=== PATIENT | female | born 1970 | race Caucasian/White ===

== ENCOUNTER 2016-11-02 05:16 | Inpatient (IN) | payer BC ==
--- NOTE | 2016-10-29 14:05 | HP ---
DATE OF ADMISSION: 11/02/[address] Pollard: Thank you for asking me to see this pleasant 46-year-old woman with at least 6 months of unrelenting right leg to ankle discomfort, sciatic symptoms, unresponsive to previous attempts at epidurals. S he is scheduled for a microdiskectomy at the L5-S1 level. PAST MEDICAL HISTORY: Relatively unremarkable. CURRENT MEDICATIONS: She takes no medications. ALLERGIES: SHE HAS NO ALLERGIES. PAST SURGICAL HISTORY: Only previous surgery was tonsillectomy. SOCIAL HISTORY: The patient is single, has no children. 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 REVIEW OF SYSTEMS: GENITOURINARY: She is perimenopausal, with periods every few months and hot flashes. Last period w as August of 2016. The patient is not sexually active. HEENT: She does require glasses for reading. EXTREMITIES: Notes that there is some weakness in her right leg. Otherwise, review of systems is unremarkable. PHYSICAL EXAMINATION: VITAL SIGNS: Blood pressure is 112/80 in the right arm, pulse is 65 and regular. She is afebrile. She is 5 feet 6 inches tall and weighs 181 pounds. GENERAL: She is alert and oriented, somewhat overweight lady, in no acute distress. HEAD, EARS, NOSE AND THROAT: Unremarkable. Pharynx is normal. LUNGS: Clear to percussion and auscultation. HEART: Tones are regular. No murmurs. ABDOMEN: Soft, without palpable masses or tenderness. EXTREMITIES: No clubbing, cyanosis or edema. Good peripheral pulses. She has no evidence of perip heral arthritis. Her straight leg raising test is positive on the right. She has reduction in the s trength of her EHL on the right side as well. Vibration is intact. INITIAL IMPRESSION: Preoperative status for microdiskectomy L5-S1 for symptomatic spinal stenosis. DISCUSSION: At this time there is no contraindication to proceeding with surgery. Laboratory tests are essentially normal. Slight elevation of her SGPT, which may be related to her weight. Chest x -ray and electrocardiogram are normal. Thank you for asking us to see her at this time. We will be glad to follow her along with you posto peratively as needed. Dictated By: ANDRA BECKER MD, SR/KERRY Conf#: [id number] DID#: [id number]
[~2016-11-02] VITALS: Ht 167.6 cm; Wt 81.8 kg
[2016-11-02] VITALS (23 sets, daily range): BP systolic 111–142; BP diastolic 67–91; PULSE 68–88; RESP 16–25; Ht 167.6 cm; Wt 81.8 kg
[2016-11-02] MEDS ORDERED: CEFAZOLIN 2 GM/50 ML (PMX) 50 ML IVPB ONE (06:00)
[2016-11-02] MEDS ORDERED: LACTATED RINGER'S 1,000 ML IV* ONE (06:00)
[2016-11-02] MEDS ORDERED: SURGIFOAM POWDER 1 GM KIT ONE (06:44)
[2016-11-02] MEDS ORDERED: THROMBIN 5000 UNIT VIAL ONE (06:45)
[2016-11-02] MEDS ORDERED: BUPIVACAINE 0.25%/EPI (SDV) 30 ML INJ ONE (06:45)
[2016-11-02] MEDS ORDERED: BUPIVACAINE 0.25% (MPF) 30 ML INJ ONE (06:45)
[2016-11-02] MEDS ORDERED: POLYMYXIN/BACITRACIN 1L IRRIG ONE (06:48)
[2016-11-02] MEDS ORDERED: CEFAZOLIN 1 GM INJ ONE (07:00)
[2016-11-02] MEDS ORDERED: LIDOCAINE 2% (SDV) 5 ML INJ ONE (07:00)
[2016-11-02] MEDS ORDERED: CA CHLORIDE 10% 10 ML SYRINGE ONE (07:04)
--- NOTE | 2016-11-02 07:09 | HPN ---
Date/Time of Note Date/Time of Note DATE: 11/02/16 TIME: 07:08 Interval H&P Admission Note Pt. seen H&P reviewed: No system changes STACY CAPUTO MD Nov 02, 2016 07:09
[2016-11-02] MEDS ORDERED: FENTAnyl 50 MCG/ML VIAL ONE ×3 (07:13→08:47)
[2016-11-02] MEDS ORDERED: MIDAZOLAM 1 MG/ML 2 ML INJ ONE (07:13)
[2016-11-02] MEDS ORDERED: PROPOFOL 20 ML ONE (07:15)
[2016-11-02] MEDS ORDERED: BISACODYL 10 MG SUPP PR PRN (07:30)
[2016-11-02] MEDS ORDERED: HYDROmorphONE 0.2 MG/ML PCA IV SCH (07:30)
[2016-11-02] MEDS ORDERED: HYDROmorphONE 1 MG/ML SYG IV PRN (07:30)
[2016-11-02] MEDS ORDERED: DIPHENHYDRAMINE 50 MG INJ IV PRN ×2 (07:30→09:00)
[2016-11-02] MEDS: CEFAZOLIN 1 GM/50 ML (PMX) 50 ML IVPB SCH ×3 (07:30→23:29)
[2016-11-02] MEDS ORDERED: NALOXONE (0.4 MG/ML) INJ IV PRN (07:30)
[2016-11-02] MEDS ORDERED: DIPHENHYDRAMINE 25 MG CAP PO PRN (07:30)
[2016-11-02] MEDS ORDERED: CARISOPRODOL 350 MG TAB PO PRN (07:30)
[2016-11-02] MEDS ORDERED: ACETAMINOPHEN 325 MG TAB PO PRN (07:30)
[2016-11-02] MEDS ORDERED: AL HYDROX/MG HYDROX/SIMETH 30 ML CUP PO PRN (07:30)
[2016-11-02] MEDS ORDERED: HYDROCODONE/APAP (10/325) TAB PO PRN ×2 (07:30)
[2016-11-02] MEDS ORDERED: CEPASTAT LOZENGE MT PRN (07:30)
[2016-11-02] MEDS ORDERED: ONDANSETRON 4 MG INJ IV PRN ×2 (07:30→09:00)
[2016-11-02] MEDS ORDERED: morphine 10 MG INJ ONE (07:32)
[2016-11-02] MEDS ORDERED: LABETALOL HCL 20MG INJ ONE (07:42)
[2016-11-02] MEDS ORDERED: BUPIVACAINE 0.25%/EPI (SDV) 30 ML INJ INJ ONE (07:48)
[2016-11-02] MEDS ORDERED: THROMBIN 5000 UNIT VIAL TOP ONE (07:48)
[2016-11-02] MEDS ORDERED: POLYMYXIN/BACITRACIN 1L IRRIG IRR ONE (07:48)
[2016-11-02] MEDS ORDERED: DEXAMETHASONE 4 MG/ML 1 ML INJ ONE (07:59)
[2016-11-02] MEDS ORDERED: ONDANSETRON 4 MG INJ ONE (08:17)
[2016-11-02] MEDS ORDERED: GLYCOPYRROLATE 1 MG INJ ONE (08:27)
[2016-11-02] MEDS ORDERED: NEOSTIGMINE 3 MG/3 ML SYRINGE ONE (08:27)
[2016-11-02] MEDS ORDERED: OXYCODONE/ACETAMINOPHEN (5/325) TAB PO PRN (09:00)
[2016-11-02] MEDS: DOCUSATE SODIUM 100 MG CAP PO SCH ×2 (09:00→20:56)
[2016-11-02] MEDS ORDERED: LABETALOL HCL 20MG INJ IV PRN (09:00)
[2016-11-02] MEDS ORDERED: HYDROmorphONE (0.2 MG/ML) 10ML SYG IV PRN ×3 (09:00)
[2016-11-02] MEDS ORDERED: EPHEDrine SULFATE 50 MG/5 ML SYG IV PRN (09:00)
[2016-11-02] MEDS ORDERED: MEPERIDINE 25 MG INJ IV PRN (09:00)
[2016-11-02] MEDS ORDERED: hydrALAzine 20 MG INJ IV PRN (09:00)
[2016-11-02] MEDS ORDERED: FENTAnyl 50 MCG/ML VIAL IV PRN ×2 (09:00)
[2016-11-02] MEDS: FENTAnyl 50 MCG/ML VIAL IV PRN ×3 (09:06→09:23)
--- NOTE | 2016-11-02 10:23 | OPR ---
DATE OF OPERATION: 11/02/2016 PREOPERATIVE DIAGNOSIS: Right L5 to S1 disk herniation with radiculopathy. POSTOPERATIVE DIAGNOSIS: Right L5 to S1 disk herniation with radiculopathy. PROCEDURE PERFORMED: 1. Right L5 to S1 hemilaminotomy, partial medial facetectomy, and foraminotomy. 2. Right L5 to S1 lumbar microdiskectomy. 2. Lateral localizing film x2. 3. Use of operative microscope. 4. Intraoperative neuromonitoring (1 hour). 5. Epidural injection via catheter. PRIMARY SURGEON: Renny Pollard MD AIRLINE RESERVATION AGENT: Margo Viera PA-C NEED FOR VARNISH THINNER: During this spinal surgical procedure, my sales assistants and salespersons was used to retrac t and protect the spinal nerves and dural sac. My sales assistants and salespersons also employed the suction catheters to evacuate blood from the surgical field to improve visualization of the neural structures. The sebastian tant was medically necessary to facilitate the completion of the surgery in a safe and expeditious m michele. [facility] [place] regulations, as well as hospital bylaws, preclude the use of non-license d health care personnel, such as operating room technicians, to perform these functions. FINDINGS: Neuromonitoring at the start of the case revealed right L5 amplitude down 40%, right S1 a mplitude down 30%. At the end of the case, nerve signals returned to normal. The patient had a jeni y swollen right S1 nerve root. She had a calcified disk herniation. ESTIMATED BLOOD LOSS: Less than 30 mL. DRAINS: None. SPECIMENS: L5 to S1 disk. COMPLICATIONS OF PROCEDURES: None. ANESTHESIOLOGIST: Dr. Rice TYPE OF ANESTHESIA: General. INDICATIONS FOR PROCEDURE: This is a 46-year-old female with right lumbosacral radiculopathy in the setting of a disk herniation at L5 to S1. She has failed nonoperative measures, therefore, I recom mended pursuing the above-mentioned surgery. Preoperatively, we discussed risks, benefits, and alte rnatives. She understood and wished to proceed. DESCRIPTION OF PROCEDURE IN DETAIL: The patient was identified in the preoperative holding area, [facility], taken to the operating room, where she was successfully placed under general. Neuromonitoring leads were placed. Sequential compressive devices were applied. Esquivel catheter wa s not introduced. Neuromonitoring was utilized during the procedure for 1 hour to include SSEP, MEP , and EMG. This was performed by [employer]. Start time was 7:30 a.m., closure time was 8:30 a.m. The patient was placed on the operative table in prone position over a Charly frame. All bon y prominences were well padded. The back was then prepped and draped in the usual sterile fashion. Spinal needles were placed and lateral localizing film obtained to confirm the correct levels. I t hen injected the paraspinal musculature with 0.25% Marcaine and epinephrine. Incision was then made over the L5 to S1 level. Incision was taken down to the dorsal fascia, which was incised with Bovie cautery. I then subperiosteally dissected the right L5 lamina. A Jovana re tractor was placed. Kerrison was placed in what was felt to be the L5 lamina and repeat lateral damian m obtained to confirm the correct levels. Once this was confirmed, microscope was brought in and a right-sided hemilaminotomy and partial medial facetectomy and foraminotomy was performed at the L5 t o S1 level. The ligamentum flavum was then sharply dissected. The right S1 nerve root was quite la rge and my sales assistants and salespersons retracted this medially. I made an annulotomy. The disk was quite collapsed a nd therefore, I took a Kerrison to remove the posterior calcified anulus. Once this was done, I rem mariel the disk herniation. Once this was done, all nerve signals returned to normal. I achieved hem ostasis with Surgifoam and bipolar cautery. The wound was then copiously irrigated. Valsalva maneu jeni was performed and there was no leak of CSF. The wound was dry and therefore, I elected not to p lace a drain. An epidural catheter was placed through which I injected 100 mcg of fentanyl and the catheter was pulled. The anesthesiologist jacky peripheral blood, which was spun down using the [employer] device and I took the platelet-poor plasma and mixed this with thrombin and injected this over the dura for hemostati c purposes. Once this was done, I removed the retractors and closed the deep fascia with #1 Vicryl stitch. I then closed the subcutaneous tissue with a 2-0 Vicryl stitch. Microscope was taken off t he field. I then closed the skin with a 4-0 Monocryl closure. Dermabond was then applied. The pat ient was then awakened from anesthesia and taken to the recovery room in stable condition. Lap, spo nge, and instrument counts were correct x2. There were no apparent complications during the procedu re. The patient will be admitted to the orthopedic ren for routine postoperative care to include pain c ontrol, neurovascular checks, antibiotics, and physical therapy. Dictated By: RENNY LEW/KERRY Conf#: [id number] DID#: [id number]
[2016-11-02] MEDS: PANTOPRAZOLE 40 MG INJ IV SCH (12:00)
--- NOTE | 2016-11-02 12:13 | RADRPT ---
PROCEDURE: Intraoperative XR. CLINICAL INDICATION: Intraoperative radiograph during L5-S1 lumbar decompression. TECHNIQUE: Spot intraoperative lateral lumbar x-ray image was provided. The images were reviewed on a high-resolution PACS workstation. COMPARISON: None available FINDINGS: Spot intraoperative lateral lumbar view were provided during L5-S1 lumbar decompression. The images demonstrate metallic probe at the level of L5 and S1. IMPRESSION: 1. Spot intraoperative lateral lumbar view during L5-S1 lumbar decompression were provided. 2. Please see operative report of the same day for further information. RPTAT: DD .Skinny Mascorro MD, Date Time Electronically viewed and signed by .Skinny Mascorro MD, on 11/02/2016 12:12 .S/
--- NOTE | 2016-11-02 12:14 | RADRPT ---
PROCEDURE: Intraoperative XR. CLINICAL INDICATION: Intraoperative radiograph during L5-S1 lumbar decompression. TECHNIQUE: Spot intraoperative lateral lumbar x-ray image was provided. The images were reviewed on a high-resolution PACS workstation. COMPARISON: None available FINDINGS: Spot intraoperative lateral lumbar view were provided during L5-S1 lumbar decompression. The images demonstrate metallic instrumentation at the level of L5-S1. IMPRESSION: 1. Spot intraoperative lateral lumbar view during L5-S1 lumbar decompression were provided. 2. Please see operative report of the same day for further information. RPTAT: DD .Skinny Mascorro MD, Date Time Electronically viewed and signed by .Skinny Mascorro MD, on 11/02/2016 12:13 .S/
--- NOTE | 2016-11-02 12:47 | OPPN ---
Date/Time of Note Date/Time of Note DATE: 11/02/16 TIME: 12:46 Post-Anesthesia Notes Post-Anesthesia Note Last documented vital signs Vital Signs Date Time Temp Pulse Resp B/P Pulse Ox O2 Delivery O2 Flow Rate FiO2 11/02/16 09:36 78 18 132/73 98 Nasal Cannula 2.0 11/02/16 08:48 98.0 Activity: WNL Respiratory function: WNL Cardiovascular function: WNL Mental status: Baseline Pain reasonably controlled: Yes Hydration appropriate: Yes Nausea/Vomiting absent: Yes MATTHEW SEAY Nov 02, 2016 12:47
--- NOTE | 2016-11-02 14:04 | PN ---
Date/Time of Note Date/Time of Note DATE: 11/02/16 TIME: 14:02 Assessment/Plan VTE Prophylaxis VTE Prophylaxis Intervention: heparin Lines/Catheters IV Catheter Type (from Nrsg): Peripheral IV Assessment/Plan Problems: (1) Sciatica of right side due to displacement of lumbar intervertebral disc Status: Chronic Comment: It appears postoperatively that she has had an improvement in symptoms. Physical therapy will be critical to the long-term success of this (2) S/P lumbar discectomy Status: Acute Comment: She is postop and appears to have done well without any evidence of untoward complication and several factors suggesting a good outcome with surgery. Subjective 24 Hr Interval Summary Free Text/Dictation Charming female lying in bed postoperatively. She reports no complaints. Constitutional: no complaints (No fevers chills or sweats) Eyes: no complaints Respiratory: no complaints Cardiovascular: no complaints Gastrointestinal: no complaints Genitourinary: no complaints Musculoskeletal: back pain Neurologic: other (Still some right leg symptoms but less than preop) Exam/Review of Systems Vital Signs Vitals Vital Signs Date Time Temp Pulse Resp B/P Pulse Ox O2 Delivery O2 Flow Rate FiO2 11/02/16 09:36 78 18 132/73 98 Nasal Cannula 2.0 11/02/16 08:48 98.0 Exam Constitutional: alert, oriented Neck: non-tender, supple Respiratory: clear to auscultation, normal air movement Cardiovascular: nl pulses, regular rate and rhythm Gastrointestinal: nl liver, spleen, non-tender, soft Extremities: normal pulses Medications Medications Current Medications Potassium Chloride/Dextrose/ Sod Cl (D5-1/2ns + KCl 20 Meq) 1,000 ml @ 100 mls/ hr Q10H IV ; Start 11/02/16 at 07:09 Acetaminophen/ Hydrocodone Bitart ([place] (10/325)) 1 tab Q4H PRN PO PAIN LEVEL 1-5; Start 11/02/16 at 07:30 Acetaminophen/ Hydrocodone Bitart ([place] (10/325)) 2 tab Q4H PRN PO PAIN LEVEL 6-10; Start 11/02/16 at 07:30 Hydromorphone HCl 0.2 mg 0.2 mg Q1H PRN IV BREAKTHROUGH PAIN; Start 11/02/16 at 07:30 Cefazolin Sodium (Ancef 1 Gm/50 ml (Pmx)) 50 ml @ 100 mls/hr Q8H IVPB ; Start 11/02/16 at 07:30; Stop 11/02/16 at 23:59 Ondansetron HCl (Zofran Inj) 4 mg Q6H PRN IV NAUSEA AND/OR VOMITING; Start at 07:30 Bisacodyl (Dulcolax Supp) 10 mg DAILY PRN [place] CONSTIPATION; Start 11/02/16 at 07 :30 Docusate Sodium (Colace) 100 mg BID PO ; Start 11/02/16 at 09:00 Pantoprazole (Protonix Iv) 40 mg DAILY@06 IV ; Start 11/02/16 at 12:00 Al Hydrox/Mg Hydrox/Simethicone (Mag-Al Plus) 15 ml Q6H PRN PO CONSTIPATION/ DYSPEPSIA; Start 11/02/16 at 07:30 Acetaminophen (Tylenol Tab) 650 mg Q4H PRN PO BURNETT OR TEMP GREATER THAN 101.3F; Start 11/02/16 at 07:30 Carisoprodol (Soma) 350 mg TID PRN PO MUSCLE SPASMS; Start 11/02/16 at 07:30 Phenol (Cepastat Lozenge) 1 lozenge PRN PRN [place] SORE THROAT; Start 11/02/16 at 07:30 Diphenhydramine HCl (Benadryl) 25 mg Q6H PRN PO ITCHING; Start 11/02/16 at 07: 30 Diphenhydramine HCl (Benadryl) 25 mg Q6H PRN IV ITCHING; Start 11/02/16 at 07: 30 Naloxone HCl (Narcan) 0.2 mg Q2M PRN IV RR 8 BREATHS/MIN OR LESS; Start at 07:30 Hydromorphone HCl (Dilaudid WOOD SCRAP HANDLER) WOOD SCRAP HANDLER to be started in PACU Q4PCA IV Last administered on 11/02/16t 08:44; Admin Dose 6 MG; Start 11/02/16 at 07:30 Miscellaneous Information 1. Hold WOOD SCRAP HANDLER at 1,000... WOOD SCRAP HANDLER IV ; Start 11/02/16 at 07: 30 SOLA CARLSON MD Nov 02, 2016 14:04
[2016-11-02] MEDS: D5W-0.45 NACL + KCL 20 MEQ 1,000 ML IV SCH ×2 (14:12→17:09)
[2016-11-03] MEDS: D5W-0.45 NACL + KCL 20 MEQ 1,000 ML IV SCH (03:09)
[2016-11-03 04:55] LABS: ADD SCAN DIFF NO
[2016-11-03 05:10] LABS: BASOPHILS % 0.2 % (0.0-2.0); EOSINOPHILS % 0.1 % (0.0-7.0); HEMATOCRIT 39.6 % (37.0-47.0); HEMOGLOBIN 12.7 g/dl (12.0-16.0); LYMPHOCYTES # 1.6 10^3/ul (0.8-2.9); LYMPHOCYTES % 11.1 % (15.0-51.0); MEAN CORPUSCULAR HGB CONC 32.1 g/dl (32.0-37.0); MEAN CORPUSCULAR VOLUME 87.4 fl (82.0-101.0); MEAN PLATELET VOLUME 9.7 fl (7.4-10.4); MONOCYTES % 6.4 % (0.0-11.0); NEUTROPHIL # 12.1 10^3/ul (1.6-7.5); NEUTROPHILS % 81.7 % (39.0-77.0); PLATELET COUNT 241 10^3/UL (140-415); RED BLOOD COUNT 4.53 10^6/ul (4.20-5.40); WHITE BLOOD COUNT 14.8 10^3/ul (4.8-10.8)
[2016-11-03] MEDS: PANTOPRAZOLE 40 MG INJ IV SCH (05:31)
[2016-11-03 05:49] LABS: CALCIUM 9.5 mg/dl (8.4-10.2); CREATININE 0.66 mg/dl (0.44-1.00); MAGNESIUM 1.9 mg/dl (1.7-2.5); POTASSIUM 4.7 mmol/L (3.5-5.1)
[2016-11-03] MEDS ORDERED: CEFAZOLIN 1 GM/50 ML (PMX) 50 ML IVPB SCH (07:30)
[2016-11-03 07:50] VITALS: BP 107/64; RESP 19
[2016-11-03] MEDS: DOCUSATE SODIUM 100 MG CAP PO SCH (08:47)
--- NOTE | 2016-11-03 08:48 | PN ---
Date/Time of Note Date/Time of Note DATE: 11/03/16 TIME: 08:46 Assessment/Plan VTE Prophylaxis VTE Prophylaxis Intervention: SCD's Lines/Catheters IV Catheter Type (from Nrsg): Peripheral IV Subjective 24 Hr Interval Summary Free Text/Dictation doing well first post op day excellent strength now in rt foot, no complaint of leg pain, some back discomfort lungs clear, abd soft labs, vs ok probable dc home per ortho Exam/Review of Systems Vital Signs Vitals Vital Signs Date Time Temp Pulse Resp B/P Pulse Ox O2 Delivery O2 Flow Rate FiO2 11/03/16 07:50 98.5 73 19 107/64 100 11/02/16 14:00 Nasal Cannula 11/02/16 09:36 2.0 Intake and Output 11/02/16 11/02/16 11/03/16 15:00 23:00 07:00 Intake Total 700 ml 50 ml 1910 ml Output Total 50 ml Balance 650 ml 50 ml 1910 ml Results Result Diagram: 11/03/16 0439 11/03/16 0439 Results 24 hrs Laboratory Tests Test 11/03/16 04:39 11/03/16 05:17 White Blood Count 14.8 H Red Blood Count 4.53 Hemoglobin 12.7 Hematocrit 39.6 Mean Corpuscular Volume 87.4 Mean Corpuscular Hemoglobin 28.0 L Mean Corpuscular Hemoglobin Concent 32.1 Red Cell Distribution Width 13.0 Platelet Count 241 Mean Platelet Volume 9.7 Neutrophils % 81.7 H Lymphocytes % 11.1 L Monocytes % 6.4 Eosinophils % 0.1 Basophils % 0.2 Nucleated Red Blood Cells % 0.0 Neutrophils # 12.1 H Lymphocytes # 1.6 Monocytes # 1.0 H Eosinophils # 0.0 Basophils # 0.0 Nucleated Red Blood Cells # 0.0 Sodium Level 139 Potassium Level 4.7 Chloride Level 107 Carbon Dioxide Level 24 Anion Gap 13 Blood Urea Nitrogen 14 Creatinine 0.66 Glucose Level 149 Calcium Level 9.5 Magnesium Level 1.9 Lab Scanned Report REFERENCE LAB Medications Medications Current Medications Potassium Chloride/Dextrose/ Sod Cl (D5-1/2ns + KCl 20 Meq) 1,000 ml @ 100 mls/ hr Q10H IV Last administered on 11/02/16t 14:12; Admin Dose 100 MLS/HR; Start 11/02/16 at 07:09 Acetaminophen/ Hydrocodone Bitart ([place] (10/325)) 1 tab Q4H PRN PO PAIN LEVEL 1-5; Start 11/02/16 at 07:30 Acetaminophen/ Hydrocodone Bitart ([place] (325)) 2 tab Q4H PRN PO PAIN LEVEL 6-10; Start 11/02/16 at 07:30 Hydromorphone HCl (Dilaudid) 0.2 mg Q1H PRN IV BREAKTHROUGH PAIN; Start at 07:30 Ondansetron HCl (Zofran Inj) 4 mg Q6H PRN IV NAUSEA AND/OR VOMITING Last administered on 11/02/16 19:18; Admin Dose 4 MG; Start 11/02/16 at 07:30 Bisacodyl (Dulcolax Supp) 10 mg DAILY PRN [place] CONSTIPATION; Start 11/02/16 at 07 :30 Docusate Sodium (Colace) 100 mg BID PO Last administered on 11/02/16 20:56; Admin Dose 100 MG; Start 11/02/16 at 09:00 Pantoprazole (Protonix Iv) 40 mg DAILY@06 IV Last administered on 11/03/16 05: 31; Admin Dose 40 MG; Start 11/02/16 at 12:00 Al Hydrox/Mg Hydrox/Simethicone (Mag-Al Plus) 15 ml Q6H PRN PO CONSTIPATION/ DYSPEPSIA; Start 11/02/16 at 07:30 Acetaminophen (Tylenol Tab) 650 mg Q4H PRN PO BURNETT OR TEMP GREATER THAN 101.3F Last administered on 11/02/16 19:18; Admin Dose 650 MG; Start 11/02/16 at 07:30 Carisoprodol (Soma) 350 mg TID PRN PO MUSCLE SPASMS; Start 11/02/16 at 07:30 Phenol (Cepastat Lozenge) 1 lozenge PRN PRN [place] SORE THROAT; Start 11/02/16 at 07:30 Diphenhydramine HCl (Benadryl) 25 mg Q6H PRN PO ITCHING; Start 11/02/16 at 07: 30 Diphenhydramine HCl (Benadryl) 25 mg Q6H PRN IV ITCHING; Start 11/02/16 at 07: 30 Naloxone HCl (Narcan) 0.2 mg Q2M PRN IV RR 8 BREATHS/MIN OR LESS; Start at 07:30 Hydromorphone HCl (Dilaudid LAND CLEARER) LAND CLEARER to be started in PACU Q4PCA IV Last administered on 11/02/16t 08:44; Admin Dose 6 MG; Start 11/02/16 at 07:30 Miscellaneous Information 1. Hold LAND CLEARER at 1,000... LAND CLEARER IV ; Start 11/02/16 at 07: 30 ANDRA BECKER MD Nov 03, 2016 08:48
--- NOTE | 2016-11-03 13:39 | DS ---
DATE OF ADMISSION: 11/02/2016 DATE OF DISCHARGE: 11/03/2016 ADMITTING DIAGNOSIS: Disk herniation. DISCHARGE DIAGNOSIS: Disk herniation. PROCEDURE: Patient taken to the operating room on November 02 and underwent lumbar diskectomy. HOSPITAL COURSE: The patient was admitted to the orthopedic ren after undergoing the above procedu re. Postoperative course was uncomplicated. By postop day 1, she was deemed stable for discharge w ith followup arranged with the undersigned. Dictated By: STACY LEW/KERRY Conf#: [id number] DID#: [id number]
== END 2016-11-03 13:26 | disposition home or self-care (01) | DRG 520 ==
LOC: REC 05:16 → MS1 09:53
PROVIDERS: ADMIT Specialist; ATTEND Specialist
PROC: 0SB40ZZ Excision of Lumbosacral Disc, Open Approach (ICD-10-PCS; 2016-11-02)
PROC: 01NB0ZZ Release Lumbar Nerve, Open Approach (ICD-10-PCS; principal; 2016-11-02 07:30)
DX: M51.17 Intervertebral disc disorders with radiculopathy, lumbosacral region (principal); M48.07 Spinal stenosis, lumbosacral region
CPT/HCPCS: 72020; 80048; 83735; 85025; 86999; 88304; 97116; 97162; 97530; C9113; J0690; J1100; J1170; J2250; J2270; J2405; J2710; J3010; J3480